=== PATIENT | male | born 1980 | race Caucasian/White ===

== ENCOUNTER 2023-05-19 04:56 | Inpatient (IN) | payer BC ==
[2023-05-19 05:21] VITALS: TEMP 98.5
--- NOTE | 2023-05-19 05:27 | ED ---
General Adult HPI - General Chief complaint: Chest Pain Stated complaint: light headed chest discomfort Time Seen by Provider: 05/19/23 05:18 Source: patient Mode of arrival: ambulatory Limitations: no limitations - History of Present Illness Initial comments: This patient is a 43-year-old man who presents with complaint that he has an uncomfortable feeling in his chest. Patient states he had been doing well yesterday. He was awakened around 4 AM with an uncomfortable feeling and felt like his heart was pounding. He states that he also was briefly feeling lightheaded like passing out. -: hour(s) Location: chest Radiation: non-radiation Consistency: intermittent Improves with: none Worsens with: none Treatments Prior to Arrival: none - Related Data Home Medications Medication Instructions Recorded Confirmed Ibuprofen [Motrin Ib] 800 mg PO Q8H PRN 05/19/23 05/19/23 Multivitamins, Thera [Multivitamin 1 tab PO DAILY 05/19/23 05/19/23 (formulary)] Previous Rx's Medication Instructions Recorded Aspirin 325 mg PO DAILY #30 tab 05/19/23 Diltiazem Cd [Cardizem CD] 120 mg PO DAILY #30 cap 05/19/23 Allergies Allergy/AdvReac Type Severity Reaction Status Date / Time No Known Allergies Allergy Verified 05/19/23 12:56 Review of Systems ROS Statement: Those systems with pertinent positive or pertinent negative responses have been documented in the HPI. ROS Other: All systems not noted in ROS Statement are negative. Constitutional: Denies: fever, chills, weakness Respiratory: Denies: cough, dyspnea Cardiovascular: Reports: palpitations, syncope (Near syncope). Denies: dyspnea on exertion, orthopnea Gastrointestinal: Denies: abdominal pain, nausea, vomiting Genitourinary: Denies: dysuria, hematuria Musculoskeletal: Denies: back pain Skin: Denies: rash Neurological: Denies: headache, weakness Past Medical History Past Medical History: No Reported History History of Any Multi-Drug Resistant Organisms: None Reported Past Surgical History: No Surgical Hx Reported Past Psychological History: No Psychological Hx Reported Smoking Status: Never smoker Past Alcohol Use History: Occasional Past Drug Use History: None Reported General Exam Limitations: no limitations General appearance: alert, in no apparent distress Head exam: Present: atraumatic, normocephalic Eye exam: Present: normal appearance. Absent: scleral icterus, conjunctival injection ENT exam: Present: normal oropharynx Neck exam: Present: normal inspection Respiratory exam: Present: normal lung sounds bilaterally. Absent: respiratory distress, wheezes, rales, rhonchi, stridor Cardiovascular Exam: Present: tachycardia, irregular rhythm, normal heart sounds. Absent: systolic murmur, diastolic murmur, rubs, gallop GI/Abdominal exam: Present: soft. Absent: distended, tenderness, guarding, rebound, rigid, mass Extremities exam: Present: normal inspection, normal capillary refill. Absent: pedal edema, calf tenderness Back exam: Present: normal inspection. Absent: CVA tenderness (R), CVA tenderness (L) Neurological exam: Present: alert Skin exam: Present: warm, dry, intact, normal color. Absent: rash Course Vital Signs 05/19/23 05/19/23 05/19/23 04:59 06:34 07:41 Temperature 98.5 F Pulse Rate 65 103 H 102 H Respiratory 18 12 20 Rate Blood Pressure 133/82 118/77 124/85 O2 Sat by Pulse 98 96 99 Oximetry 05/19/23 05/19/23 05/19/23 08:45 10:13 14:27 Temperature Pulse Rate 88 92 64 Respiratory 20 20 19 Rate Blood Pressure 117/88 112/65 115/76 O2 Sat by Pulse 99 97 96 Oximetry EKG Findings - EKG Results: EKG: interpreted by SHANNEN, normal axis, normal QRS, normal ST/T EKG shows: atrial fibrillation (Rate 113 bpm) Medical Decision Making - Medical Decision Making Patient is 43-year-old man presenting with what appears to be new onset atrial fibrillation. The patient's initial workup negative. Given anticoagulation with Lovenox. IV Cardizem initially ordered as the rate was tachycardic. Nursing did call back and states that his heart rate was now less than 100 and the patient is therefore given oral Cardizem. The patient had chest x-ray that I interpreted as negative for acute infiltrate, pneumothorax, congestive heart failure Was pt. sent in by a medical professional or institution (, PA, MOLD STRIPPER, urgent care, hospital, or retirement...) When possible be specific @ -[No] Did you speak to anyone other than the patient for history (EMS, parent, family, police, friend...)? What history was obtained from this source @ -[No] Did you review nursing and triage notes (agree or disagree)? Why? @ -[I reviewed and agree with nursing and triage notes] Were old charts reviewed (outside hosp., previous admission, EMS record, old EKG, old radiological studies, urgent care reports/EKG's, retirement records)? Report findings @ -[No old charts were reviewed] Differential Diagnosis (chest pain, altered mental status, abdominal pain women, abdominal pain men, vaginal bleeding, weakness, fever, dyspnea, syncope, headache, dizziness, GI bleed, back pain, seizure, CVA, palpatations, mental health, musculoskeletal)? @ -[Differential Palpitations Ventricular arrhythmias, atrial arrhythmias, myocardial infarction, anemia, thyrotoxicosis, electrolyte imbalance, hypokalemia, pulmonary embolism, pul monary disease, drugs, alcohol, anxiety, stress.... This is not meant to be an all-inclusive list. EKG interpreted by me (3pts min.). @ -[I interpreted as above] X-rays interpreted by me (1pt min.). @ -I interpreted as above CT interpreted by me (1pt min.). @ -[None done] U/S interpreted by me (1pt. min.). @ -[None done] What testing was considered but not performed or refused? (CT, X-rays, U/S, labs)? Why? @ -[None] What meds were considered but not given or refused? Why? @ -[None] Did you discuss the management of the patient with other professionals (professionals i.e. , PA, MOLD STRIPPER, lab, RT, psych nurse, social service director, red lead burner, teacher, parole hearing officer, showcase trimmer)? Give summary @ -[Case discussed with admitting physician and treatment recommendations incorporated Was smoking cessation discussed for >3mins.? @ -[No] Was critical care preformed (if so, how long)? @ -[No] Were there social determinants of health that impacted care today? How? (Homelessness, low income, unemployed, alcoholism, drug addiction, transportation, low edu. Level, literacy, decrease access to med. care, retirement, rehab)? @ -[No] Was there de-escalation of care discussed even if they declined (Discuss DNR or withdrawal of care, Hospice)? DNR status @ -[No] What co-morbidities impacted this encounter? (DM, HTN, Smoking, COPD, CAD, Cancer, CVA, ARF, Chemo, Hep., AIDS, mental health diagnosis, sleep apnea, morbid obesity)? @ -[None] Was patient admitted / discharged? Hospital course, mention meds given and route, prescriptions, significant lab abnormalities, going to OR and other pertinent info. @ -[As above Undiagnosed new problem with uncertain prognosis? @ -[No] Drug Therapy requiring intensive monitoring for toxicity (Heparin, Nitro, Insulin, Cardizem)? @ -[No] Were any procedures done? @ -[No] Diagnosis/symptom? @ -New onset atrial fibrillation Acute, or Chronic, or Acute on Chronic? @ -Acute Uncomplicated (without systemic symptoms) or Complicated (systemic symptoms)? @ -[Uncomplicated Side effects of treatment? @ -[No] Exacerbation, Progression, or Severe Exacerbation? @ -[No] Poses a threat to life or bodily function? How? (Chest pain, USA, OR, pneumonia, PE, COPD, DKA, ARF, appy, cholecystitis, CVA, Diverticulitis, Homicidal, Suicidal, threat to staff... and all critical care pts) @ -[No] - Lab Data Result diagrams: 05/19/23 05:37 05/19/23 05:37 Lab Results 05/19/23 05/19/23 05/19/23 Range/Units 05:37 05:37 05:37 WBC 6.4 (3.8-10.6) k/uL RBC 5.39 (4.30-5.90) m/uL Hgb 15.8 (13.0-17.5) gm/dL Hct 46.5 (39.0-53.0) % MCV 86.3 (80.0-100.0) fL MCH 29.4 (25.0-35.0) pg MCHC 34.0 (31.0-37.0) g/dL RDW 12.8 (11.5-15.5) % Plt Count 194 (150-450) k/uL MPV 7.5 Neutrophils % 39 % Lymphocytes % 43 % Monocytes % 8 % Eosinophils % 6 % Basophils % 1 % Neutrophils # 2.5 (1.3-7.7) k/uL Lymphocytes # 2.7 (1.0-4.8) k/uL Monocytes # 0.5 (0-1.0) k/uL Eosinophils # 0.4 (0-0.7) k/uL Basophils # 0.1 (0-0.2) k/uL PT 10.4 (10.0-12.5) sec INR 0.9 (<1.2) APTT 21.6 L (22.0-30.0) sec Sodium 139 (137-145) mmol/L Potassium 3.7 (3.5-5.1) mmol/L Chloride 105 (98-107) mmol/L Carbon Dioxide 25 (22-30) mmol/L Anion Gap 9 mmol/L BUN 15 (9-20) mg/dL Creatinine 0.95 (0.66-1.25) mg/dL Est GFR (CKD-EPI)AfAm >90 (>60 ml/min/1.73 sqM) Est GFR (CKD-EPI)NonAf >90 (>60 ml/min/1.73 sqM) Glucose 125 H (74-99) mg/dL Calcium 9.1 (8.4-10.2) mg/dL Magnesium 1.9 (1.6-2.3) mg/dL Total Bilirubin 0.5 (0.2-1.3) mg/dL AST 29 (17-59) U/L ALT 41 (4-49) U/L Alkaline Phosphatase 51 (38-126) U/L Troponin I (0.000-0.034) ng/mL Total Protein 7.0 (6.3-8.2) g/dL Albumin 4.4 (3.5-5.0) g/dL 05/19/23 Range/Units 05:37 WBC (3.8-10.6) k/uL RBC (4.30-5.90) m/uL Hgb (13.0-17.5) gm/dL Hct (39.0-53.0) % MCV (80.0-100.0) fL MCH (25.0-35.0) pg MCHC (31.0-37.0) g/dL RDW (11.5-15.5) % Plt Count (150-450) k/uL MPV Neutrophils % % Lymphocytes % % Monocytes % % Eosinophils % % Basophils % % Neutrophils # (1.3-7.7) k/uL Lymphocytes # (1.0-4.8) k/uL Monocytes # (0-1.0) k/uL Eosinophils # (0-0.7) k/uL Basophils # (0-0.2) k/uL PT (10.0-12.5) sec INR (<1.2) APTT (22.0-30.0) sec Sodium (137-145) mmol/L Potassium (3.5-5.1) mmol/L Chloride (98-107) mmol/L Carbon Dioxide (22-30) mmol/L Anion Gap mmol/L BUN (9-20) mg/dL Creatinine (0.66-1.25) mg/dL Est GFR (CKD-EPI)AfAm (>60 ml/min/1.73 sqM) Est GFR (CKD-EPI)NonAf (>60 ml/min/1.73 sqM) Glucose (74-99) mg/dL Calcium (8.4-10.2) mg/dL Magnesium (1.6-2.3) mg/dL Total Bilirubin (0.2-1.3) mg/dL AST (17-59) U/L ALT (4-49) U/L Alkaline Phosphatase (38-126) U/L Troponin I <0.012 (0.000-0.034) ng/mL Total Protein (6.3-8.2) g/dL Albumin (3.5-5.0) g/dL Disposition Clinical Impression: New onset atrial fibrillation Disposition: ADMITTED IP TO THIS HOSP Is patient prescribed a controlled substance at d/c from ED?: No
[2023-05-19] MEDS: ENOXAPARIN 100 MG/ML SYRINGE SQ ONE (05:41)
[2023-05-19] MEDS: ASPIRIN 81 MG PO STA (05:45)
[2023-05-19] MEDS: DILTIAZEM ORAL 60 MG TAB PO STA (05:46)
[2023-05-19] MEDS: DILTIAZEM 125 MG in SODIUM CHLORIDE 0.9% 100 ML IV SCH (05:48)
[2023-05-19] MEDS: DILTIAZEM DRIP BOLUS FROM BAG 1 MG SOLN IV ONE (05:48)
--- NOTE | 2023-05-19 06:00 | XR ---
EXAMINATION TYPE: XR chest 2V DATE OF EXAM: 05/19/2023 COMPARISON: NONE HISTORY: Chest pain. TECHNIQUE: Frontal and lateral views of the chest are obtained. FINDINGS: There is no focal air space opacity, pleural effusion, or pneumothorax seen. The cardiac silhouette size is within normal limits. The osseous structures are intact. IMPRESSION: No acute process.
[2023-05-19 06:02] LABS: Basophils # (A) 0.1 k/uL (0-0.2); Basophils % (A) 1 %; Eosinophils # (A) 0.4 k/uL (0-0.7); Eosinophils % (A) 6 %; HCT 46.5 % (39.0-53.0); HGB 15.8 gm/dL (13.0-17.5); Lymphocytes # (A) 2.7 k/uL (1.0-4.8); Lymphocytes % (A) 43 %; MCH 29.4 pg (25.0-35.0); MCV 86.3 fL (80.0-100.0); Mean Platelet Volume 7.5; Monocytes # (A) 0.5 k/uL (0-1.0); Monocytes % (A) 8 %; Neutrophils # (A) 2.5 k/uL (1.3-7.7); Neutrophils % (A) 39 %; Platelet Count 194 k/uL (150-450); RBC 5.39 m/uL (4.30-5.90); RDW 12.8 % (11.5-15.5); WBC 6.4 k/uL (3.8-10.6)
[2023-05-19 06:13] LABS: ALT 41 U/L (4-49); AST 29 U/L (17-59); African American GFR (CKD) >90 (>60 ml/min/1.73 sqM); Albumin 4.4 g/dL (3.5-5.0); Alkaline Phosphatase 51 U/L (38-126); Anion Gap 9 mmol/L; Blood Urea Nitrogen 15 mg/dL (9-20); Calcium 9.1 mg/dL (8.4-10.2); Carbon Dioxide 25 mmol/L (22-30); Chloride 105 mmol/L (98-107); Glucose 125 mg/dL (74-99); Magnesium 1.9 mg/dL (1.6-2.3); Non-African American GFR(CKD) >90 (>60 ml/min/1.73 sqM); Potassium 3.7 mmol/L (3.5-5.1); Sodium 139 mmol/L (137-145); Total Bilirubin 0.5 mg/dL (0.2-1.3)
[2023-05-19 06:17] LABS: INR 0.9 (<1.2); Prothrombin Time 10.4 sec (10.0-12.5)
[2023-05-19 06:33] LABS: Partial Thromboplastin Time 21.6 sec (22.0-30.0)
[2023-05-19] MEDS ORDERED: NITROGLYCERIN SL TABS 0.4 MG TAB SUBLINGUAL PRN (06:56)
--- NOTE | 2023-05-19 11:45 | CA ---
Transthoracic Echo Report Name: Dennis Lewis Age: 43 Gender: M : 1980 Exam Date: 05/19/2023 08:26 Exam Location: [facility] Ht (in): 69 Wt (lb): 202 Ordering Physician: Camilo Love MD Attending/Referring Phys: Saturator Tender Liyah Rodrigues RDCS Procedure CPT: Indications: new a fib Cardiac Hx: Technical Quality: Fair Contrast 1: Total Dose (mL): Contrast 2: Total Dose (mL): MEASUREMENTS (Male / Female) Normal Values 2D ECHO LV Diastolic Diameter PLAX 4.0 cm 4.2 - 5.9 / 3.9 - 5.3 cm LV Systolic Diameter PLAX 2.8 cm IVS Diastolic Thickness 1.8 cm 0.6 - 1.0 / 0.6 - 0.9 cm LVPW Diastolic Thickness 1.8 cm 0.6 - 1.0 / 0.6 - 0.9 cm LV Relative Wall Thickness 0.9 RV Internal Dim ED PLAX 4.2 cm LA Volume 43.4 cm??? 18 - 58 / 22 - 52 cm??? LA Volume Index 20.3 cm???/m??? 16 - 28 cm???/m??? M-MODE Aortic Root Diameter MM 4.0 cm LA Systolic Diameter MM 4.7 cm LA Ao Ratio MM 1.2 AV Cusp Separation MM 3.0 cm DOPPLER AV Peak Velocity 114.1 cm/s AV Peak Gradient 5.2 mmHg AV Mean Velocity 89.4 cm/s AV Mean Gradient 3.4 mmHg AV Velocity Time Integral 18.4 cm LVOT Peak Velocity 143.6 cm/s LVOT Peak Gradient 8.2 mmHg LVOT Velocity Time Integral 28.5 cm MV Area PHT 3.2 cm??? Mitral E Point Velocity 59.3 cm/s Mitral A Point Velocity 0.2 cm/s Mitral E to A Ratio 240.1 MV Deceleration Time 240.8 ms MV E' Velocity 11.3 cm/s Mitral E to MV E' Ratio 5.2 TR Peak Velocity 247.8 cm/s TR Peak Gradient 24.6 mmHg Right Ventricular Systolic Press 27.6 mmHg FINDINGS Left Ventricle Severely increased left ventricular wall thickness. Left ventricular cavity size normal. Normal left ventricular systolic function with no obvious regional wall motion abnormalities. Left ventricular ejection fraction is estimated at 55 %. Right Ventricle Mild right ventricular dilatation. Right ventricular systolic pressure within normal limits. Right Atrium Normal right atrial size. Left Atrium Normal left atrial size. Mitral Valve Structurally normal mitral valve. Mild mitral regurgitation. Aortic Valve Trileaflet aortic valve. No aortic valve stenosis or regurgitation. Tricuspid Valve Structurally normal tricuspid valve. Trace to mild tricuspid regurgitation. Pulmonic Valve Structurally normal pulmonic valve. Trace pulmonic regurgitation. Pericardium No pericardial effusion. Aorta Normal size aortic root and proximal ascending aorta. CONCLUSIONS Severely increased left ventricular wall thickness Left ventricular ejection fraction 55% RVSP 27 Mild mitral regurgitation Previewed by: Dr. Baltazar Padilla DO (Electronically Signed) Final Date: 19 May 2023 11:45
--- NOTE | 2023-05-19 12:23 | P.CRDCN ---
History of Present Illness Consult date: 05/19/23 Consult reason: atrial fibrillation History of present illness: History of present illness: Patient is a pleasant 43-year-old male with no significant past medical history who presented to the emergency department with tachycardia and palpitations. He does not follow with powderer. EKG revealed A-fib with RVR 113 bpm. Chest x-ray was unrevealing. He reports that he woke up around 4 AM this morning and felt his heart racing and felt lightheaded and dizzy. This did not resolve after 30 minutes and decided to come to the emergency department. He does have significant family history with a sister with [id number] as well as a sister with spontaneous coronary artery dissection. He does not smoke. He drinks a few alcoholic drinks a week. Denies any drug use. He does admit to having a few whiskey and Cokes last night. Labs reviewed hemoglobin 15.8, creatinine 0.95, troponin negative x 2. Telemetry shows atrial fibrillation with heart rates 6070s. He is feeling better with heart rates controlled. He denies any history of stroke, ND, diabetes, heart failure, blood clots. He does snore at night, no prior eval for sleep apnea. He does have vasovagal response to needles and IVs. REVIEW OF SYSTEMS: No fever or chills. No cough or expectoration. No diaphoresis. Patient denies headache, dizziness, blurred vision, double vision. Patient denies any stomach discomfort. No nausea, vomiting. No hematochezia. No hematemesis. Denies any black stools or blood in his stools. Denies dysuria or hematuria. No muscle weakness or numbness. No chest pain or pressure. PHYSICAL EXAMINATION: This is a 43-year-old male in no apparent distress at the time of my examination. HEENT: Head is atraumatic, normocephalic. Pupils are equal, round. Sclerae anicteric. Conjunctivae are clear. Mucous membranes of the mouth are moist. Neck is supple. There is no jugular venous distention. No carotid bruit is heard. CHEST EXAMINATION: Lungs are clear to auscultation. No chest wall tenderness is noted on palpation or with deep breathing. HEART EXAMINATION: Irregular rate and rhythm. S1, S2 heard. No murmurs, gallops or rub. ABDOMEN: Soft, nontender. Bowel sounds are heard. EXTREMITIES: 2+ peripheral pulses with no evidence of peripheral edema and no calf tenderness noted. NEUROLOGIC EXAMINATION: Patient is awake, alert and oriented x3. IMPRESSION AND PLAN: New onset A-fibrillation Palpitations LVH Vasovagal syncope PLAN: ECHO reviewed, EF preserved, severe LVH 1.8cm. Rule out HCM and cardiac amylodosis. Check SPEP, lamda and kappa chains, TSH. [id number] score is zero, anticoagulation not indicated at this time. Recommend outpatient eval for sleep apnea. Consider outpatient Cardiac MRI. Continue cardizem 120mg po at discharge. Follow up in office in 1 week. I am dictating on behalf of Dr. Baltazar Padilla's history/physical and assessment/plan. Past Medical History Past Medical History: No Reported History History of Any Multi-Drug Resistant Organisms: None Reported Past Surgical History: No Surgical Hx Reported Past Psychological History: No Psychological Hx Reported Smoking Status: Never smoker Past Alcohol Use History: Occasional Past Drug Use History: None Reported Medications and Allergies Allergies Allergy/AdvReac Type Severity Reaction Status Date / Time No Known Allergies Allergy Verified 05/19/23 05:01 Physical Exam Vitals: Vital Signs Temp Pulse Resp BP Pulse Ox 05/19/23 10:13 92 20 112/65 97 05/19/23 08:45 88 20 117/88 99 05/19/23 07:41 102 H 20 124/85 99 05/19/23 06:34 103 H 12 118/77 96 05/19/23 04:59 98.5 F 65 18 133/82 98 Intake and Output 05/18/23 05/19/23 05/19/23 22:59 06:59 14:59 Other: Weight 91.626 kg Results 05/19/23 05:37 05/19/23 05:37 Cardiac Enzymes 05/19/23 05/19/23 05/19/23 Range/Units 05:37 05:37 08:07 AST 29 (17-59) U/L Troponin I <0.012 <0.012 (0.000-0.034) ng/mL Coagulation 05/19/23 Range/Units 05:37 PT 10.4 (10.0-12.5) sec APTT 21.6 L (22.0-30.0) sec CBC 02/03/24 Range/Units 05:37 WBC 6.4 (3.8-10.6) k/uL RBC 5.39 (4.30-5.90) m/uL Hgb 15.8 (13.0-17.5) gm/dL Hct 46.5 (39.0-53.0) % Plt Count 194 (150-450) k/uL Comprehensive Metabolic Panel 05/19/23 Range/Units 05:37 Sodium 139 (137-145) mmol/L Potassium 3.7 (3.5-5.1) mmol/L Chloride 105 (98-107) mmol/L Carbon Dioxide 25 (22-30) mmol/L BUN 15 (9-20) mg/dL Creatinine 0.95 (0.66-1.25) mg/dL Glucose 125 H (74-99) mg/dL Calcium 9.1 (8.4-10.2) mg/dL AST 29 (17-59) U/L ALT 41 (4-49) U/L Alkaline Phosphatase 51 (38-126) U/L Total Protein 7.0 (6.3-8.2) g/dL Albumin 4.4 (3.5-5.0) g/dL Current Medications Generic Name Dose Route Start Last Admin Trade Name Freq PRN Reason Stop Dose Admin Aspirin 325 mg 05/20/23 09:00 Aspirin 325 Mg Tab PO DAILY ROGELIO Diltiazem HCl 125 mg/ Sodium 125 mls @ 5 mls/hr 05/19/23 05:30 05/19/23 05:48 Chloride IV Not Given .Q24H ROGELIO 5 MG/HR Nitroglycerin 0.4 mg 05/19/23 06:56 Nitroglycerin Sl Tabs 0.4 Mg Tab SUBLINGUAL Q5M PRN Chest Pain Intake and Output 05/18/23 05/19/23 05/19/23 22:59 06:59 14:59 Other: Weight 91.626 kg 05/19/23 05:37 05/19/23 05:37
[2023-05-19 14:38] VITALS: BP 115/76; PULSE 64; RESP 19
--- NOTE | 2023-05-19 15:39 | P.HPIM ---
History of Present Illness H&P Date: 05/19/23 Chief Complaint: Heart racing This is a pleasant 43-year-old patient follows Dr. Angie Rivas. Patient is in very good health very active and also does running. Patient was woken up at 4 AM by his 5-year-old son. [place] his heart racing. Doing the same. Patient became dizzy and a bit lightheaded. [place] a bit uncomfortable in the chest. Came to the ER. Patient given IV bolus of Cardizem 10 mg and a Cardizem drip was ordered. Also received 1 dose of oral Cardizem 60 mg. Patient remained in A-fib heart rate became controlled. Patient is does drink 4 to 5 cans of 12 ounce Coke a day. Also drinks about 7-10 beers a week. Patient is accompanied by his in the ER. Patient does give a history that one of his sister has WPW syndrome. Other sister has sudden coronary aortic dissection. Physical examination: VITAL SIGNS: 98.5, 103, 12, 118/77, 96% room air upon presentation GENERAL: BMI 29.8, laying in bed awake comfortable. EYES: Pupils equal. Conjunctiva lexis l. HEENT: External appearance of nose and ears normal, oral cavity grossly normal. NECK: JVD not raised; masses not palpable. HEART: Heart is a regular; no edema. LUNGS: Respiratory rate normal; clear to auscultation. ABDOMEN: Soft, nontender, liver spleen not palpable, no masses palpable. PSYCH: Alert and oriented x3; mood and affect lexis l. MUSCULOSKELETAL:No Clubbing/cyanosis;muscles-grossly intact NEUROLOGICAL: Cranial nerves grossly intact; no facial asymmetry, power and sensation grossly intact. LYMPHATICS: No lymph nodes palpable in the axilla and neck INVESTIGATIONS, reviewed in the clinical context: May 19, 2023: White count 6.4 hemoglobin 15.8 platelets 194 sodium 139 potassium 3.7 creatinine 0.95 Troponin I less than 0.012 x 2 TSH normal Chest x-ray film personally reviewed by me-borderline cardiomegaly EKG tracing personally reviewed by me-atrial flutter fibrillation with a rate of 113 Assessment plan: -New onset of atrial fibrillation with rapid ventricular rate. Aggravating factors include patient drinking 4 to 512 ounce Coke a day and also about 7-10 beers a week. Received Cardizem bolus followed by p.o. Cardizem. Heart rate better controlled -Excessive nicotine intake in the form of 4 to 512 ounce Cokes a day. Telemetry. Cardiology consulted. Received Cardizem. 2D echo Past Medical History Past Medical History: No Reported History History of Any Multi-Drug Resistant Organisms: None Reported Past Surgical History: No Surgical Hx Reported Past Psychological History: No Psychological Hx Reported Smoking Status: Never smoker Past Alcohol Use History: Occasional Past Drug Use History: None Reported Medications and Allergies Home Medications Medication Instructions Recorded Confirmed Type Aspirin 325 mg PO DAILY #30 tab 05/19/23 Rx Diltiazem Cd [Cardizem CD] 120 mg PO DAILY #30 cap 05/19/23 Rx Ibuprofen [Motrin Ib] 800 mg PO Q8H PRN 05/19/23 05/19/23 History Multivitamins, Thera [Multivitamin 1 tab PO DAILY 05/19/23 05/19/23 History (formulary)] Allergies Allergy/AdvReac Type Severity Reaction Status Date / Time No Known Allergies Allergy Verified 05/19/23 12:56 Physical Exam Vitals: Vital Signs Temp Pulse Resp BP Pulse Ox 05/19/23 10:13 92 20 112/65 97 05/19/23 08:45 88 20 117/88 99 05/19/23 07:41 102 H 20 124/85 99 05/19/23 06:34 103 H 12 118/77 96 05/19/23 04:59 98.5 F 65 18 133/82 98 Intake and Output 05/18/23 05/19/23 05/19/23 22:59 06:59 14:59 Other: Weight 91.626 kg Results CBC & Chem 7: 05/19/23 05:37 05/19/23 05:37 Labs: Abnormal Lab Results - Last 24 Hours (Table) 05/19/23 05/19/23 Range/Units 05:37 05:37 APTT 21.6 L (22.0-30.0) sec Glucose 125 H (74-99) mg/dL
--- NOTE | 2023-05-19 15:41 | P.DS ---
Providers Date of admission: 05/19/23 06:57 Expected date of discharge: 05/19/23 Attending physician: Dionte Lombardi Consults: 05/19/23 06:57 Consult Physician Urgent Consulting Provider: Baltazar Padilla Consult Reason/Comments: New onset atrial fibrillation Do you want consulting provider notified?: Yes Primary care physician: Angie Rivas [facility] Course: Chief Complaint: Heart racing This is a pleasant 43-year-old patient follows Dr. Angie Rivas. Patient is in very good health very active and also does running. Patient was woken up at 4 AM by his 5-year-old son. [place] his heart racing. Doing the same. Patient became dizzy and a bit lightheaded. [place] a bit uncomfortable in the chest. Came to the ER. Patient given IV bolus of Cardizem 10 mg and a Cardizem drip was ordered. Also received 1 dose of oral Cardizem 60 mg. Patient remained in A-fib heart rate became controlled. Patient is does drink 4 to 5 cans of 12 ounce Coke a day. Also drinks about 7-10 beers a week. Patient is accompanied by his in the ER. Patient does give a history that one of his sister has WPW syndrome. Other sister has sudden coronary aortic dissection. Patient remains in A-fib. Heart rate controlled. Seen by Dr. Padilla from cardiology. Put on Cardizem CD1 20 mg a day. Patient have an outpatient cardiac MRI and other testing. In the meantime patient is to take it easy in terms of his activity. Also complete refraining from alcohol and nicotine products. Physical examination: VITAL SIGNS: 98.5, 103, 12, 118/77, 96% room air upon presentation GENERAL: BMI 29.8, laying in bed awake comfortable. EYES: Pupils equal. Conjunctiva lexis l. HEENT: External appearance of nose and ears normal, oral cavity grossly normal. NECK: JVD not raised; masses not palpable. HEART: Heart is a regular; no edema. LUNGS: Respiratory rate normal; clear to auscultation. ABDOMEN: Soft, nontender, liver spleen not palpable, no masses palpable. PSYCH: Alert and oriented x3; mood and affect lexis l. MUSCULOSKELETAL:No Clubbing/cyanosis;muscles-grossly intact NEUROLOGICAL: Cranial nerves grossly intact; no facial asymmetry, power and sensation grossly intact. LYMPHATICS: No lymph nodes palpable in the axilla and neck INVESTIGATIONS, reviewed in the clinical context: 2D echocardiogram: Severely increased left ventricular wall thickness. EF 55%. May 19, 2023: White count 6.4 hemoglobin 15.8 platelets 194 sodium 139 potassium 3.7 creatinine 0.95 Troponin I less than 0.012 x 2 TSH normal Chest x-ray film personally reviewed by me-borderline cardiomegaly EKG tracing personally reviewed by me-atrial flutter fibrillation with a rate of 113 Assessment plan: -New onset of atrial fibrillation with rapid ventricular rate. Aggravating factors include patient drinking 4 to 512 ounce Coke a day and also about 7-10 beers a week. Received Cardizem bolus followed by p.o. Cardizem. Heart rate better controlled Cardizem CD 120 mg/day Follow-up with Dr. Padilla. Carry out normal activity as discussed with the patient. -Excessive nicotine intake in the form of 4 to 512 ounce Cokes a day. -Severe LVH. Cardizem CD Disposition: Home Past Medical History Past Medical History: No Reported History History of Any Multi-Drug Resistant Organisms: None Reported Past Surgical History: No Surgical Hx Reported Past Psychological History: No Psychological Hx Reported Smoking Status: Never smoker Past Alcohol Use History: Occasional Past Drug Use History: None Reported Plan - Discharge Summary New Discharge Prescriptions: New Aspirin 325 mg PO DAILY #30 tab Diltiazem Cd [Cardizem CD] 120 mg PO DAILY #30 cap No Action Multivitamins, Thera [Multivitamin (formulary)] 1 tab PO DAILY Ibuprofen [Motrin Ib] 800 mg PO Q8H PRN PRN Reason: Pain Or Fever > 100.5 Discharge Medication List Aspirin 325 mg PO DAILY #30 tab 05/19/23 [Rx] Diltiazem Cd [Cardizem CD] 120 mg PO DAILY #30 cap 05/19/23 [Rx] Ibuprofen [Motrin Ib] 800 mg PO Q8H PRN 05/19/23 [History] Multivitamins, Thera [Multivitamin (formulary)] 1 tab PO DAILY 05/19/23 [History] Follow up Appointment(s)/Referral(s): Baltazar Padlila DO [STAFF PHYSICIAN] - 1 Week Angie Rivas MD [Primary Care Provider] - 1-2 days
[2023-05-20 06:49] LABS: Albumin 4.5 g/dL (3.8-4.9); Protein, Total 6.9 g/dL (6.2-8.2)
[2023-05-20] MEDS ORDERED: ASPIRIN 325 MG TAB PO SCH (09:00)
[2023-05-22 15:01] LABS: Free Kappa Lt Chain Qnt, Serum 1.71 mg/dL (0.33-1.94); Free Lambda Lt Chain Qnt, Seru 1.71 mg/dL (0.57-2.63)
[2023-05-22 21:13] LABS: Gamma Globulin 1.02 g/dL (0.70-1.50)
== END 2023-05-19 14:33 | disposition home or self-care (01) | DRG 310 ==
LOC: EC 04:56 → 3SCARD 06:57
PROVIDERS: ADMIT Hospitalist; ATTEND Hospitalist
DX: I48.91 Unspecified atrial fibrillation (principal); Z28.310 Unvaccinated for COVID-19; Z79.899 Other long term (current) drug therapy; Z82.49 Family history of ischemic heart disease and other diseases of the circulatory system
CPT/HCPCS: 36415; 71046; 80053; 83735; 83883; 84165; 84443; 84484; 85025; 85610; 85730; 93005; 93306; 96372; 99285

== ENCOUNTER → 2024-10-21 | Outpatient (CLI) | payer BC ==
--- NOTE | 2024-10-22 06:32 | FL ---
EXAMINATION TYPE: FL barium swallow DATE OF EXAM: 10/21/2024 COMPARISON: NONE CLINICAL INDICATION: Male, 44 years old with history of R13.19 OTHER DYSPHAGIA, dry food caught in th roat for one to 2 years. TECHNIQUE: A double contrast esophagram is performed utilizing air and barium. A total of 38 second s of fluoroscopic time was utilized during procedure and 40 images obtained. Total DAP = n/p. FINDINGS: The esophagus shows normal motility and emptying into the stomach. No evidence of fixed hi atal hernia or stricture noted. No intraluminal mass. No significant gastroesophageal reflux was seen during real time performance of this study. IMPRESSION: No significant abnormality is seen to account for patient's symptoms. [facility], , 10/22/2024 6:30 AM
== END | disposition home or self-care (01) ==
LOC: RADFLMAIN 14:47
PROVIDERS: ATTEND Family Medicine
DX: R13.19 Other dysphagia (principal)
CPT/HCPCS: 74220